=== PATIENT | male | born 1970 | race Caucasian/White ===

== ENCOUNTER 2023-09-04 01:11 | Outpatient (RCR) | payer SELFPAY ==
[2023-09-04] MEDS: Normal Saline Flush 10 ML SYR IVP (11:34)
== END 2023-09-04 23:59 | disposition home or self-care (01) ==
LOC: INF 01:11
PROVIDERS: Visit Provider Internal Medicine Hematology & Oncology
DX: Z45.2 Encounter for adjustment and management of vascular access device (principal)
CPT/HCPCS: 96523